=== PATIENT | male | born 1940 | race Two or more races ===

== ENCOUNTER 2021-12-11 23:41 | Emergency (ER) | payer OTHER ==
[~2021-12-11] VITALS: Ht 172.7 cm; Wt 89.8 kg
[2021-12-11] MEDS ORDERED: KEPPRA1000 MG (23:56)
[2021-12-11] MEDS ORDERED: NAMENDA10 MG (23:57)
[2021-12-12] MEDS ORDERED: ALBUTEROL2.5 MG/3 M IH (02:28)
== END 2021-12-12 02:58 | disposition home or self-care (01) ==
LOC: ER 23:41
DX: R06.02 Shortness of breath (principal); R50.9 Fever, unspecified; Z20.822 Contact with and (suspected) exposure to COVID-19